=== PATIENT | female | born 1990 ===

== ENCOUNTER 2019-10-09 18:23 | Inpatient (IN) ==
[2019-10-09] MEDS ORDERED: LACTATED RINGERS 250 ML IV ONE (19:14)
[2019-10-09] MEDS ORDERED: LACTATED RINGERS 500 ML IV PRN (19:14)
[2019-10-09] MEDS ORDERED: ONDANSETRON 4 MG/2 ML VIAL IV PRN (19:14)
[2019-10-09] MEDS ORDERED: FAMOTIDINE 20 MG/2 ML VIAL IV ONE (19:18)
[2019-10-09] MEDS ORDERED: CITRIC ACID/SODIUM CITRATE 30 ML UDCUP PO ONE (19:18)
[2019-10-09] MEDS ORDERED: hydrOXYzine HCL 25 MG/1 ML VIAL IM PRN (19:18)
[2019-10-09] MEDS ORDERED: diphenhydrAMINE 50 MG/1 ML VIAL IV PRN ×2 (19:18)
[2019-10-09] MEDS ORDERED: ePHEDrine 50 MG/ML VIAL IV PRN (19:18)
[2019-10-09] MEDS ORDERED: ONDANSETRON 4 MG/2 ML VIAL IV ONE (19:18)
[2019-10-09] MEDS ORDERED: NALOXONE 0.4 MG/ML VIAL IV PRN (19:18)
[2019-10-09] MEDS ORDERED: PROMETHAZINE 25 MG/1 ML VIAL IM ONE (19:18)
[2019-10-09] MEDS ORDERED: OXYTOCIN/LR 20 UNIT/1,000 ML BAG IV SCH (19:30)
[2019-10-09] MEDS ORDERED: fentaNYL 2 MCG/ROPIV 0.2% EPID 100 ML EPIDURAL SCH (19:30)
[2019-10-09] MEDS: LACTATED RINGERS 1,000 ML IV SCH ×2 (19:35→20:03)
[2019-10-09 19:36] LABS: Basophils % 0.2 % (0.0-0.8); Eosinophils % 0.3 % (0.00-10.9); Hematocrit 33.8 VOL% (35.7-47.0); Immature Granulocytes % 0.3 %; Immature Granulocytes Absolute 0.03 #; Lymphocytes % 21.6 % (21.3-54.2); Mean Corpuscular HGB Conc 32.5 GM/DL (32-36); Mean Corpuscular Volume 87.1 FL (87-102); Mean Platelet Volume 10.3 FL (9.6-12.0); Monocytes % 5.2 % (1.7-12.7); Neutrophils % 72.4 % (38.7-73.9); Platelet Count 177 T/CUMM (130-400); Red Blood Count 3.88 MC/CUMM (3.8-5.5); Red Cell Distribution Width 15.4 % (9.3-17.3); White Blood Count 9.1 T/CUMM (4-12)
[2019-10-09 20:05] LABS: Albumin 2.3 G/DL (3.4-5.0); Bilirubin,Total 0.6 MG/DL (0.2-1.0); Calcium 8.2 MG/DL (8.5-10.1); Osmolality,Calculated 269.8 MOS/KG (273-304); Total Protein 6.9 G/DL (6.4-8.3)
[2019-10-09 21:32] LABS: Apearance,Urine CLEAR (Clear); Bilirubin,Urine Negative (Negative); Blood, Urine Negative (Negative); Glucose,Urine (UA) Negative (Negative); Hyaline Casts,Urine 1 /LPF (0-3); Ketones,Urine 20 mg/dL (Negative); Mucus,Urine Occasional /LPF (Occasional); Nitrite,Urine Negative (Negative); Protein,Urine Negative; RBC,Urine <1 /HPF (0-4); Squamous Epithelial Cell,Urine Occasional /HPF (0-10); Urine Color Yellow (Yellow); Urine Specific Gravity 1.017 (1.001-1.035); Urine Urobilinogen < 2.0 EU/DL (0.2-1.0); WBC,Urine 1 /HPF (0-6)
[2019-10-09] MEDS ORDERED: miSOPROStoL 200 MCG TABLET ONE (21:57)
[2019-10-09] MEDS ORDERED: METHYLERGONOVINE 0.2 MG/1 ML AMP ONE (21:57)
[2019-10-09] MEDS ORDERED: CARBOPROST TROMETHAMINE 250 MCG/ML AMP IM ONE (21:58)
[2019-10-09 22:56] LABS: Cord Venous Blood HCO3 22.3 MMOL/L; Cord Venous Blood PCO2 38.3 MMHG; Cord Venous Blood PO2 36.8
[2019-10-09] MEDS ORDERED: ACETAMINOPHEN 325 MG TABLET PO PRN (23:31)
[2019-10-09] MEDS ORDERED: WITCH HAZEL PADS 100/JAR TOP PRN (23:31)
[2019-10-09] MEDS ORDERED: HYDROCORTISONE 2.5% RECTAL CREAM 30 GM TUBE TOP PRN (23:31)
[2019-10-09] MEDS ORDERED: DIPH/TET/ACEL PERT BOOSTER VACCINE 0.5 ML VIAL IM ONE (23:31)
[2019-10-09] MEDS ORDERED: LANOLIN 50% CREAM 0.3 OZ TUBE TOP PRN (23:31)
[2019-10-09] MEDS ORDERED: RHO(D) IMMUNE GLOBULIN 300 MCG SYRINGE IM ONE (23:31)
[2019-10-09] MEDS ORDERED: oxyCODONE/ACETAMINOPHEN 5-325 MG TABLET PO PRN ×2 (23:31)
[2019-10-09] MEDS ORDERED: OXYTOCIN/LR 20 UNIT/1,000 ML BAG IV ONE (23:31)
[2019-10-09] MEDS ORDERED: MEASLES/MUMPS/RUBELLA VACCINE 0.5 ML VIAL SUBCUT ONE (23:31)
[2019-10-09] MEDS ORDERED: BISACODYL 10 MG SUPP RECTAL PRN (23:31)
[2019-10-09] MEDS ORDERED: BENZOCAINE 20%/MENTHOL 0.5% SPRAY 56 GM CAN TOP PRN (23:31)
[2019-10-10] MEDS: IBUPROFEN 800 MG TABLET PO PRN ×2 (01:25→23:14)
[2019-10-10 05:49] LABS: Basophils % 0.2 % (0.0-0.8); Eosinophils % 0.3 % (0.00-10.9); Hematocrit 33.1 VOL% (35.7-47.0); Hemoglobin 10.8 GM/DL (12.0-16.0); Immature Granulocytes % 0.4 %; Immature Granulocytes Absolute 0.04 #; Lymphocytes # 2.1 10*3/uL (1.4-4.0); Lymphocytes % 19.4 % (21.3-54.2); Mean Corpuscular HGB Conc 32.6 GM/DL (32-36); Mean Corpuscular Volume 86.4 FL (87-102); Mean Platelet Volume 11.1 FL (9.6-12.0); Monocytes % 6.2 % (1.7-12.7); Neutrophils % 73.5 % (38.7-73.9); Platelet Count 165 T/CUMM (130-400); Red Blood Count 3.83 MC/CUMM (3.8-5.5); Red Cell Distribution Width 15.2 % (9.3-17.3); White Blood Count 10.7 T/CUMM (4-12)
[2019-10-10] MEDS: DOCUSATE SODIUM 100 MG CAPSULE PO SCH ×2 (08:48→20:28)
[2019-10-11 08:47] VITALS: BP 140/88
[2019-10-11] MEDS: IBUPROFEN 800 MG TABLET PO PRN (09:04)
[2019-10-11] MEDS: DOCUSATE SODIUM 100 MG CAPSULE PO SCH (09:04)
== END 2019-10-11 14:40 | disposition home or self-care (01) | DRG 807 ==
LOC: N.LDOUT 18:23 → N.LD 18:28 → N.OB 10-10 15:40
PROVIDERS: ADMIT Obstetrics & Gynecology